=== PATIENT | female | born 1955 | race Caucasian/White ===

== ENCOUNTER 2018-03-06 14:02 | Outpatient (CLI) | payer OTHER | END 2018-03-06 14:03 | disposition home or self-care (01) | LOC: BICMAMMO 14:02 | PROVIDERS: ATTEND Obstetrics & Gynecology | DX: Z12.31 Encounter for screening mammogram for malignant neoplasm of breast (principal); M85.80 Other specified disorders of bone density and structure, unspecified site; Z80.3 Family history of malignant neoplasm of breast | CPT/HCPCS: 77063; 77067; 77080 ==

== ENCOUNTER 2020-02-26 09:37 | Outpatient (CLI) | payer MEDICARE ==
--- NOTE | 2020-02-26 11:03 | BD ---
BONE DENSITOMETRY USING DEXA: Date: 02/26/2020 HISTORY: Postmenopausal screening for osteoporosis. FINDINGS: Lumbar Spine: BMD (g/cm2) L1 0.829 T-Score: -1.5 Z-Score: 0.2 L2 0.818 T-Score: -1.9 Z-Score: -0.1 L3 0.776 T-Score: -2.8 Z-Score: -0.8 L4 0.769 T-Score: -2.7 Z-Score: -0.6 L1-L4 0.795 T-Score: -2.3 Z-Score: -0.4 Femoral Neck: 0.725 T-Score: -1.1 Z-Score: 0.5 Total Femur: 0.965 T-Score: 0.2 Z-Score: 1.5 The 10 year fracture risk for a major osteoporotic fracture is 8.2% and for a hip fracture is 0.7%. IMPRESSION: Osteopenia. POS: AH
== END 2020-02-26 09:38 | disposition home or self-care (01) ==
LOC: BICMAMMO 09:37
PROVIDERS: ATTEND Obstetrics & Gynecology
DX: M85.89 Other specified disorders of bone density and structure, multiple sites (principal)
CPT/HCPCS: 77080

== ENCOUNTER 2020-08-27 07:22 | Outpatient (CLI) | payer MEDICARE ==
[2020-08-27 21:36] LABS: SARS-CoV-2 MS2 Positive; SARS-CoV-2 N Gene Negative; SARS-CoV-2 S Gene Negative; SARS-CoV-2 by NAA Not Detected (NotDetected); SARS-CoV-2 orf1ab Negative
== END 2020-08-27 07:23 | disposition home or self-care (01) ==
LOC: LABBT 07:22
PROVIDERS: ATTEND Specialist
DX: Z01.818 Encounter for other preprocedural examination (principal); Z20.828 Contact with and (suspected) exposure to other viral communicable diseases; K80.10 Calculus of gallbladder with chronic cholecystitis without obstruction
CPT/HCPCS: 87635; 93005; 93010; U0003

== ENCOUNTER 2020-09-01 06:28 | Day surgery (SDC) | payer MEDICARE ==
--- NOTE | 2020-08-30 08:03 | HP ---
HISTORY OF PRESENT ILLNESS: Yuni Kim is a 65-year-old female, presents with symptoms since June of intermittent right upper quadrant epigastric pain, flank radiation, nausea, especially after fatty food. She underwent ultrasound of gallbladder early August at the [facility] noting gallstones and normal bile duct caliber. CBC, comprehensive metabolic profile in the last 2 weeks normal. No history of coronary artery disease. She had a colonoscopy by Dr. Nelson several years ago and is due for another one soon. ALLERGIES: NO ALLERGIES, BUT SHE HAS INTOLERANCE TO ULTRAM AND VICODIN, MOSTLY GI SYMPTOMS, BUT SHE CAN TAKE TYLENOL AND MOTRIN WITHOUT PROBLEMS. MEDICATIONS: capsule daily. She was treated with Flagyl for gallbladder symptoms, not taking any more. PAST SURGICAL HISTORY: Tubal ligation, left knee arthroscopy. PAST MEDICAL HISTORY: Noncontributory. REVIEW OF SYSTEMS: 10-point noncontributory. FAMILY HISTORY: Noncontributory. PHYSICAL EXAMINATION: VITAL SIGNS: Weight 170 pounds, height 5 feet 3 inches, 30 BMI, blood pressure 116/43, heart rate 62, temperature 97.8 degrees. NEUROLOGIC: Intact. HEENT: Sclerae nonicteric. SKIN: Nonjaundiced. LYMPHATIC: No lymphadenopathy in neck, axilla, or groins. LUNGS: Clear to auscultation. CARDIAC: Regular rate and rhythm without murmur or gallop. ABDOMEN: Soft, nontender. No masses. No hernias. EXTREMITIES: No edema. ASSESSMENT AND PLAN: Symptomatic gallstones, cholelithiasis, chronic cholecystitis. We would recommend laparoscopic video cholecystectomy outpatient. She understands risks and benefits discussed with her. Questions answered. Job ID: [id number]
[2020-08-31 09:20] VITALS: BMI 29.2
[2020-09-01] MEDS ORDERED: Ketorolac Tromethamine 30 MG/ML VIAL ONE (06:45)
[2020-09-01] MEDS ORDERED: Acetaminophen 500 MG TAB ONE (06:45)
[2020-09-01] MEDS ORDERED: Fentanyl 100 MCG/2 ML VIAL ONE ×2 (08:14→10:06)
[2020-09-01] MEDS ORDERED: Lidocaine 2% Jelly 5 ML TUBE ONE (08:15)
[2020-09-01] MEDS ORDERED: Lidocaine 1% w/Epinephrine 1:100K 20 ML VIAL ONE (08:16)
[2020-09-01] MEDS ORDERED: Bupivacaine PF 0.5% 30 ML VIAL ONE (08:16)
[2020-09-01] MEDS ORDERED: SUGAMMADEX SODIUM 200 MG/2 ML VIAL ONE (09:33)
[2020-09-01] MEDS ORDERED: Lidocaine 1% PF 5 ML VIAL ONE (09:54)
[2020-09-01] MEDS ORDERED: Glycopyrrolate 0.2 MG/ML 5 ML SYRINGE ONE (09:54)
[2020-09-01] MEDS ORDERED: PROPOFOL 200 MG/20 ML VIAL ONE (09:54)
[2020-09-01] MEDS ORDERED: Rocuronium Bromide 10 MG/ML (10ML VIAL) ONE (09:54)
[2020-09-01] MEDS ORDERED: Ondansetron PF 4 MG/2 ML Vial ONE (09:54)
[2020-09-01] MEDS ORDERED: Dexamethasone 20 MG/5 ML VIAL ONE (09:54)
[2020-09-01] MEDS ORDERED: ePHEDrine 50 MG/ML VIAL ONE (09:54)
--- NOTE | 2020-09-01 10:02 | OP ---
DATE OF PROCEDURE: 09/01/2020 PREOPERATIVE DIAGNOSES: Chronic cholecystitis, cholelithiasis. POSTOPERATIVE DIAGNOSES: Chronic cholecystitis, cholelithiasis. PROCEDURE PERFORMED: Laparoscopic video cholecystectomy. ANESTHESIA: General, local 0.5% Marcaine with epinephrine 30 mL mixed with 1% Xylocaine with epinephrine 20 mL. DESCRIPTION OF PROCEDURE: The patient was taken to the operating room, where under general anesthesia abdomen was prepared with ChloraPrep and draped in routine fashion. Local anesthetic mixture was infiltrated into the skin and subcutaneous tissue about all port sites. Infraumbilical incision made, pneumoperitoneum to 15 mmHg obtained with a Veress needle, replacing with a 5 port, video laparoscope inserted. Right subxiphoid incision was made and 11 port placed, right subcostal incision made at midclavicular entrance line and the five ports placed. Liver appeared to be normal. Fundus of the gallbladder reflected cephalad. The infundibulum was grasped and reflected laterally. Cystic artery and duct dissected free. Critical view obtained. Cystic artery and duct doubly clipped proximally, divided, gallbladder dissected free from liver bed, and good hemostasis noted prior to division of final peritoneal attachments. Gallbladder and contents removed, submitted to Pathology. Good hemostasis assured with cautery. Irrigant and pneumoperitoneum were evacuated. All instruments were removed. All skin incisions were approximated with interrupted subdermal 4-0 Monocryl and [place] glue applied. Job ID: [id number]
[2020-09-01] MEDS ORDERED: Ondansetron ODT 4 MG TAB ONE (12:31)
== END 2020-09-01 13:10 | disposition home or self-care (01) ==
LOC: SDC 06:28
PROVIDERS: ATTEND Specialist
PROC: 0FT44ZZ Resection of Gallbladder, Percutaneous Endoscopic Approach (ICD-10-PCS; principal; 2020-09-01)
DX: K80.10 Calculus of gallbladder with chronic cholecystitis without obstruction (principal); Z79.899 Other long term (current) drug therapy; Z88.5 Allergy status to narcotic agent
CPT/HCPCS: 88304; J0690; J1100; J1885; J2405; J2704; J3010; J3490; Q0162; S0020

== ENCOUNTER 2021-03-18 09:36 | Outpatient (CLI) | payer MEDICARE | END 2021-03-18 09:37 | disposition home or self-care (01) | LOC: BICMAMMO 09:36 | PROVIDERS: ATTEND Obstetrics & Gynecology | DX: Z12.31 Encounter for screening mammogram for malignant neoplasm of breast (principal) | CPT/HCPCS: 77063; 77067 ==

== ENCOUNTER 2022-06-14 10:01 | Outpatient (CLI) | payer MEDICARE | END 2022-06-14 10:02 | disposition home or self-care (01) | LOC: BICMAMMO 10:01 | PROVIDERS: ATTEND Obstetrics & Gynecology | DX: Z12.31 Encounter for screening mammogram for malignant neoplasm of breast (principal); Z13.820 Encounter for screening for osteoporosis; M81.0 Age-related osteoporosis without current pathological fracture; M85.89 Other specified disorders of bone density and structure, multiple sites; Z79.890 Hormone replacement therapy | CPT/HCPCS: 77063; 77067; 77080 ==

== ENCOUNTER 2023-08-06 10:40 | Outpatient (CLI) | payer MEDICARE | END 2023-08-06 10:41 | disposition home or self-care (01) | LOC: BICMAMMO 10:40 | PROVIDERS: ATTEND Obstetrics & Gynecology | DX: Z12.31 Encounter for screening mammogram for malignant neoplasm of breast (principal) | CPT/HCPCS: 77063; 77067 ==

== ENCOUNTER 2024-09-05 10:03 | Outpatient (CLI) | payer MEDICARE | END 2024-09-05 10:04 | disposition home or self-care (01) | LOC: BICMAMMO 10:03 | PROVIDERS: ATTEND Obstetrics & Gynecology | DX: Z12.31 Encounter for screening mammogram for malignant neoplasm of breast (principal); Z13.820 Encounter for screening for osteoporosis; M85.851 Other specified disorders of bone density and structure, right thigh; M85.852 Other specified disorders of bone density and structure, left thigh; M81.0 Age-related osteoporosis without current pathological fracture; E28.39 Other primary ovarian failure | CPT/HCPCS: 77063; 77067; 77080 ==